=== PATIENT | female | born 1960 | race Caucasian/White ===

== ENCOUNTER → 2017-04-28 | Outpatient (CLI) | payer OTHER ==
--- NOTE | 2017-04-28 11:17 | MM ---
Reason for exam: clinical finding. Last mammogram was performed 1 year and 10 months ago. History: Patient is postmenopausal. Family history of premenopausal breast cancer in sister at age 41, premenopausal breast cancer in sister at age 50, and breast cancer in mother at age 60. Took progesterone for 1 year 6 months beginning at age 45. Taking other hormone beginning at age 54. Physical Findings: Nurse did not find any significant physical abnormalities on exam. MG 3D Diag Mammo W/Cad TONNY Bilateral CC and MLO view(s) were taken. Prior study comparison: July 05, 2015, bilateral MG 3d screening mammo w/cad. February 03, 2013, bilateral digital screening mammo w/CAD. The breast tissue is extremely dense which could obscure a lesion on mammography. No significant new findings when compared with previous films. These results were verbally communicated with the patient and result sheet given to the patient on 04/28/17. ASSESSMENT: Benign, BI-RAD 2 RECOMMENDATION: Surgical consultation and ultrasound core biopsy of the right breast. Called Dr. Agrawal with mammographic findings and has scheduled an appointment for the patient for 05/13/17 at 10:[address] Lowe. PRELIMINARY REPORT CALLED AND FAXED TO DR. LOWE ON 04/29/17.
--- NOTE | 2017-04-28 11:19 | USB ---
Reason for exam: clinical finding. History: Patient is postmenopausal. Family history of premenopausal breast cancer in sister at age 41, premenopausal breast cancer in sister at age 50, and breast cancer in mother at age 60. Took progesterone for 1 year 6 months beginning at age 45. Taking other hormone beginning at age 54. US Breast RT Right breast ultrasound includes all four quadrants, the retroareolar region and axilla. Finding demonstrates a 0.8 x 0.4 x 0.6cm cystic lesion at 1 o'clock and a 0.5 x 0.4 x 0.6cm mixed lesion at 8 o'clock, suspicious, biopsy recommended. These results were verbally communicated with the patient and result sheet given to the patient on 04/28/17. ASSESSMENT: Suspicious, BI-RAD 4 RECOMMENDATION: Ultrasound core biopsy of the right breast. Called Dr. Agrawal with mammographic findings and has scheduled an appointment for the patient for 05/13/17 at 10:[address] Lowe. PRELIMINARY REPORT CALLED AND FAXED TO DR. LOWE ON 04/29/17.
== END | disposition home or self-care (01) ==
LOC: RADMAMWWP 07:34
PROVIDERS: ATTEND Family Medicine
DX: N64.4 Mastodynia (principal)
CPT/HCPCS: 76641; G0204; G0279

== ENCOUNTER → 2017-06-23 | Day surgery (SDC) | payer OTHER ==
[2017-06-23 12:04] VITALS: RESP 16; BMI 24.1
[2017-06-23 14:03] VITALS: BP 157/88; PULSE 79; TEMP 97.7
--- NOTE | 2017-06-23 14:28 | USB ---
EXAMINATION TYPE: US biopsy breast VAD RT, Postbiopsy MG diagnostic mammo RT wo CAD DATE OF EXAM: 06/23/2017 CLINICAL HISTORY: 57-year-old female R92.8 Previous Abnormal Mammogram. TECHNIQUE: Ultrasound guided core biopsy of the right breast. COMPARISON: 04/28/2017 FINDINGS: The procedure of ultrasound guided core biopsy was explained to the patient. Benefits, alternatives, and risks were discussed. An informed consent was then obtained. The patient was placed in supine positioning for imaging and for the procedure. The overlying skin was prepped and draped in usual sterile fashion. Lidocaine buffered with bicarbonate was used as anesthetic into the skin and subcutaneous tissue up to area of concern in the 8:00 position right breast. Under ultrasound guidance, a 13-gauge vacuum-assisted mammotome Elite biopsy gun device was used to obtain 4 core samples. Following this, a coil clip was left in lesion. The patient tolerated the procedure well without any immediate complication. The patient was kept in the radiology department for short stay after the procedure and then discharged home in stable condition. Post procedure mammogram shows the microclip centrally at the o'clock position there is some associated postprocedure hematoma localized to the biopsy site. IMPRESSION: Successful, uncomplicated ultrasound guided core biopsy of area of concern in the 8:00 right breast, full pathology results to follow. Pathology Results: Benign BREAST, RIGHT, EIGHT O'CLOCK, CORE BIOPSY: FIBROCYSTIC CHANGES INCLUDING CYSTS , FIBROSIS AND ADENOSIS. Recommendation Follow up ultrasound of the right breast in 6 months. HERNANDEZ
== END ==
LOC: RADUSWWP 11:42
PROVIDERS: ATTEND Surgery
DX: N60.31 Fibrosclerosis of right breast (principal); R92.8 Other abnormal and inconclusive findings on diagnostic imaging of breast; N60.21 Fibroadenosis of right breast; Z88.5 Allergy status to narcotic agent
CPT/HCPCS: 88305; 77065; 19083; A4648; J2001

== ENCOUNTER → 2020-09-10 | Outpatient (CLI) | payer MEDICAID ==
[2020-09-10 23:39] LABS: HCT 40.5 % (37.2-46.3); HGB 12.9 g/dL (12.0-15.0); MCH 27.6 pg (27.0-32.0); MCHC 31.9 g/dL (32.0-37.0); MCV 86.7 fL (80.0-97.0); Mean Platelet Volume 11.1 fL (9.5-12.2); Platelet Count 264 X 10*3/uL (140-440); RBC 4.67 X 10*6/uL (4.10-5.20); RDW 12.1 % (11.5-14.5); WBC 6.38 X 10*3/uL (4.50-10.00)
[2020-09-11 03:41] LABS: ALT 35 U/L (8-44); AST 22 U/L (13-35); Albumin/Globulin Ratio 1.91 (1.60-3.17); Alkaline Phosphatase 125 U/L (41-126); Bilirubin, Conjugated <0.20 mg/dL (0.20-0.40); Globulin 2.3 g/dL (1.6-3.3); Total Bilirubin 0.4 mg/dL (0.2-1.2); Total Protein 6.7 g/dL (6.2-8.2)
== END | disposition home or self-care (01) ==
LOC: LABWHC1 08:33
PROVIDERS: ATTEND Internal Medicine
DX: E05.90 Thyrotoxicosis, unspecified without thyrotoxic crisis or storm (principal)
CPT/HCPCS: 36415; 80076; 84439; 84443; 84481; 85027

== ENCOUNTER → 2020-11-12 | Outpatient (CLI) | payer MEDICAID ==
[2020-11-12 23:29] LABS: HCT 42.3 % (37.2-46.3); HGB 13.6 g/dL (12.0-15.0); MCH 26.8 pg (27.0-32.0); MCHC 32.2 g/dL (32.0-37.0); MCV 83.4 fL (80.0-97.0); Mean Platelet Volume 11.1 fL (9.5-12.2); Platelet Count 283 X 10*3/uL (140-440); RBC 5.07 X 10*6/uL (4.10-5.20); RDW 12.3 % (11.5-14.5); WBC 5.93 X 10*3/uL (4.50-10.00)
[2020-11-13 13:11] LABS: ALT 23 U/L (8-44); AST 18 U/L (13-35)
== END | disposition home or self-care (01) ==
LOC: LABWHC1 14:46
PROVIDERS: ATTEND Internal Medicine
DX: E05.90 Thyrotoxicosis, unspecified without thyrotoxic crisis or storm (principal)
CPT/HCPCS: 36415; 84439; 84443; 84450; 84460; 84481; 85027

== ENCOUNTER → 2021-01-17 | Outpatient (CLI) | payer MEDICAID ==
[2021-01-17 20:41] LABS: T4, Free (Free Thyroxine) 0.8 ng/dL (0.80-1.80)
== END | disposition home or self-care (01) ==
LOC: LABWHC1 08:32
PROVIDERS: ATTEND Internal Medicine Endocrinology, Diabetes & Metabolism
DX: E05.00 Thyrotoxicosis with diffuse goiter without thyrotoxic crisis or storm (principal)
CPT/HCPCS: 36415; 84439; 84443; 84480

== ENCOUNTER → 2021-04-17 | Outpatient (CLI) | payer MEDICAID ==
[2021-04-17 17:32] LABS: T4, Free (Free Thyroxine) 1.12 ng/dL (0.800-1.800)
== END | disposition home or self-care (01) ==
LOC: LABWHC1 08:02
PROVIDERS: ATTEND Internal Medicine Endocrinology, Diabetes & Metabolism
DX: E05.00 Thyrotoxicosis with diffuse goiter without thyrotoxic crisis or storm (principal)
CPT/HCPCS: 36415; 84439; 84443; 84480

== ENCOUNTER → 2021-07-18 | Outpatient (CLI) | payer MEDICAID ==
[2021-07-18 17:31] LABS: T4, Free (Free Thyroxine) 1.05 ng/dL (0.800-1.800)
== END | disposition home or self-care (01) ==
LOC: LABWHC1 08:46
PROVIDERS: ATTEND Internal Medicine Endocrinology, Diabetes & Metabolism
DX: E05.00 Thyrotoxicosis with diffuse goiter without thyrotoxic crisis or storm (principal)
CPT/HCPCS: 36415; 84439; 84443; 84480

== ENCOUNTER → 2021-07-21 | Outpatient (CLI) | payer MEDICAID ==
[2021-07-21 08:40] VITALS: BP 168/79; PULSE 86; RESP 17; TEMP 98.2
--- NOTE | 2021-07-21 10:31 | P.HPOB ---
History of Present Illness H&P Date: 07/21/21 Chief Complaint: The patient is here for her routine gynecologic exam. This is a 61-year-old with an LMP of 2008. She is here to establish with this office. It has been about 6 years since her last pelvic exam. She states she has been experiencing some dull achy discomfort with occasional twinges for the past 1-1/2-2 years. It is a constant ache and she rates the pain at a 2 out of 10. She notices it in the right lower quadrant and right pelvic area. There does not seem to be any specific activity that seems to make it worse, but she occasionally notices an increased with bowel movements. She also wonders if it is related to constipation which she does tend to have. She is wondering if it is related to her ovaries or pelvic adhesions from past surgeries. She denies any postmenopausal bleeding. Review of Systems She states her weight has been fluctuating by about 10-15 pounds after she was diagnosed with a thyroid problem. She states her normal adult weight has been about 155 pounds. She denies respiratory problems. Cardiac: Occasional palpitations she thinks this is related to her thyroid problem. GI: Occasional constipation. Past Medical History Past Medical History: Hypertension, Mitral Valve Prolapse (MVP), Thyroid Disorder Additional Past Medical History / Comment(s): Graves' disease. PAST ASBESTOS REMOVER HISTORY: She has no history of STDs. She did have cryotherapy for cervical dysplasia in 1987. History of Any Multi-Drug Resistant Organisms: None Reported Past Surgical History: Breast Surgery, Section, Uterine Ablation Additional Past Surgical History / Comment(s): Peritoneal endometriosis cyst removed 1988. x1. Right breast biopsy(benign), colonoscopy 1991. Past Anesthesia/Blood Transfusion Reactions: Motion Sickness Past Psychological History: Anxiety, Depression Smoking Status: Former smoker, Vaper Past Alcohol Use History: Rare (0-1 month.) Additional Past Alcohol Use History / Comment(s): Current pack a day smoker Past Drug Use History: None Reported Additional History: She is a and is not seeing anybody at this time. 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 - Past Family History Sister(s) Family Medical History: Cancer Additional Family Medical History / Comment(s): Breast cancer. Mother Family Medical History: Cancer, Thyroid Disorder Additional Family Medical History / Comment(s): Graves' disease. CDIS of the breast and uterine cancer. Father Family Medical History: Myocardial Infarction (GA) Additional Family Medical History / Comment(s): after GA at age 36. Medications and Allergies Home Medications Medication Instructions Recorded Confirmed Type Cholecalciferol [Vitamin D3] 15,000 unit PO DAILY 06/16/17 07/21/21 History Magnesium Oxide [Saleh] 500 mg PO DAILY 06/16/17 07/21/21 History Selenium 200 mcg PO DAILY 06/16/17 07/21/21 History flaxseed oiL [Cary-3 Flaxseed Oil] 3,000 mg PO BID 06/16/17 06/23/17 History L.acidoph,Paracasei, B.lactis 1 capsule PO DAILY 07/21/21 07/21/21 History [Probiotic] Milk Thistle 150 mg PO DAILY 07/21/21 07/21/21 History Vitamin A [Vitamin A (8,000 Units 2,400 mcg PO DAILY 07/21/21 07/21/21 History = 2,400 MCG)] Vitamin K2 100 mcg PO DAILY 07/21/21 07/21/21 History Zinc 50 mg PO DAILY 07/21/21 07/21/21 History methIMAzole 12 mg PO DAILY 07/21/21 07/21/21 History Allergies Allergy/AdvReac Type Severity Reaction Status Date / Time latex Allergy Itching Verified 07/21/21 08:29 venom-honey bee Allergy Swelling Verified 07/21/21 08:29 codeine AdvReac Nausea & Verified 07/21/21 08:29 Vomiting Exam Vital Signs Temp Pulse Resp BP Pulse Ox 07/21/21 08:36 98.2 F 86 17 168/79 96 Intake and Output 07/20/21 07/21/21 07/21/21 22:59 06:59 14:59 Other: Weight 75.296 kg Height 5 feet 6 inches, weight 166 pounds, BMI 26.8. This is a well-developed well-nourished white female who is alert and oriented times 3 in no acute distress. HEENT: Within normal limits. NECK: Supple without mass or thyromegaly. CHEST AND LUNGS: Clear to auscultation. HEART: Regular rate and rhythm. BREASTS: Are without mass or discharge. AXILLARY EXAM: Negative for adenopathy. BACK: Negative for CVA tenderness. ABDOMEN: Soft, nontender, without palpable masses. PELVIC EXAM: Normal external genitalia with mild atrophy. Cervix and vagina appear normal with mild atrophy. The cervix is slightly stenotic secondary to atrophy and previous cryotherapy of the cervix. There is no unusual discharge. There is no evidence of prolapse. The uterus is midposition, nongravid size and nontender. There are no palpable adnexal masses or tenderness. RECTAL EXAM: Rectovaginal exam is negative for mass or tenderness and is negative for occult blood. EXTREMITIES: Nontender. IMPRESSION: 1. 61-year-old menopausal female with chronic right lower quadrant and right pelvic ache with no significant physical findings at this time. Differential diagnosis will include pelvic adhesions, GI discomfort, hernia or or ovarian neoplasm. 2. Elevated blood pressure with history of chronic hypertension. The patient states she is no longer taking her antihypertension medication PLAN: 1. Pap smear CLOtest was performed. 2. Self breast awareness was discussed with the patient. We have also discussed symptoms associated with inflammatory breast cancer. 3. I have recommended screening mammogram since it has been a few years since her last one. The order slip was given to the patient for this. 4. We have discussed her elevated blood pressure. I recommended that she follow up with her primary care physician regarding blood pressure medications. I have stressed the importance of controlling elevated blood pressure and we've discussed possible complications which can include increased risk for stroke, if not controlled. I have also recommended regular home blood pressure testing since she does have a blood pressure cuff. 5. Pelvic ultrasound was recommended and the order slip was given to patient for this. 6.Osteoporosis prevention was discussed. I have stressed the importance of adequate calcium, vitamin D and regular exercise. Recommended amounts of calcium and vitamin D were also discussed. I have recommended bone density testing and the order slip was given to the patient for this. 7. I have recommended screening colonoscopy since it has been more than 10 years since her last one. She was advised to discuss this with her PCP to have them arrange for this. 8. She has not received a Covid vaccination. She states she did have Covid. She understands that the CDC recommends Covid vaccination, which can increase protection against Covid. 9. She was advised to return in one year for her annual well woman exam.
== END ==
LOC: WWCWWP 08:19
PROVIDERS: ATTEND Obstetrics & Gynecology
DX: Z01.419 Encounter for gynecological examination (general) (routine) without abnormal findings (principal); R10.30 Lower abdominal pain, unspecified; R10.2 Pelvic and perineal pain; G89.29 Other chronic pain; I10 Essential (primary) hypertension; F41.9 Anxiety disorder, unspecified; F32.A Depression, unspecified; F17.210 Nicotine dependence, cigarettes, uncomplicated; Z91.040 Latex allergy status; Z91.030 Bee allergy status; Z88.5 Allergy status to narcotic agent

== ENCOUNTER → 2021-10-21 | Outpatient (CLI) | payer MEDICAID ==
[2021-10-21 11:08] LABS: T4, Free (Free Thyroxine) 1.1 ng/dL (0.800-1.800)
== END | disposition home or self-care (01) ==
LOC: LABWHC1 07:14
PROVIDERS: ATTEND Internal Medicine Endocrinology, Diabetes & Metabolism
DX: E05.00 Thyrotoxicosis with diffuse goiter without thyrotoxic crisis or storm (principal)
CPT/HCPCS: 36415; 84439; 84443; 84480

== ENCOUNTER → 2021-11-21 | Outpatient (CLI) | payer MEDICAID ==
[2021-11-21 12:32] LABS: Basophils # (A) 0.06 X 10*3/uL (0.00-0.10); Basophils % (A) 0.9 %; Eosinophils # (A) 0.08 X 10*3/uL (0.04-0.35); Eosinophils % (A) 1.2 %; HCT 42.9 % (37.2-46.3); HGB 13.7 g/dL (12.0-15.0); Immature Grans, Automated 0.3 %; Lymphocytes # (A) 1.86 X 10*3/uL (0.90-5.00); Lymphocytes % (A) 28.9 %; MCH 27.8 pg (27.0-32.0); MCHC 31.9 g/dL (32.0-37.0); Mean Platelet Volume 10.8 fL (9.5-12.2); Monocytes % (A) 7.8 %; NRBC Per 100 WBC 0 /100 WBCS (0.0-0.0); Neutrophils # (A) 3.92 X 10*3/uL (1.80-7.70); Neutrophils % (A) 60.9 %; Platelet Count 271 X 10*3/uL (140-440); RBC 4.93 X 10*6/uL (4.10-5.20); RDW 12.9 % (11.5-14.5); WBC 6.44 X 10*3/uL (4.50-10.00)
[2021-11-21 12:55] LABS: ALT 28 U/L (8-44); AST 21 U/L (13-35); Albumin 4.8 g/dL (3.8-4.9); Albumin/Globulin Ratio 1.82 (1.60-3.17); Alkaline Phosphatase 108 U/L (41-126); Blood Urea Nitrogen 15.6 mg/dL (9.0-27.0); Calcium 9.8 mg/dL (8.7-10.3); Chloride 106 mmol/L (96-109); Chol/HDL Ratio 4.09 Ratio; Globulin 2.6 g/dL (1.6-3.3); Glucose 98 mg/dL (70-110); LDL Cholesterol,Calculated 132.5 mg/dL (0.0-131.0); Non-African American GFR(CKD) 93.2 (60.0-200.0); Potassium 4.3 mmol/L (3.5-5.5); Sodium 142 mmol/L (135-145); Total Protein 7.4 g/dL (6.2-8.2); VLDL Calculation 17.86 mg/dL (5.00-40.00)
== END | disposition home or self-care (01) ==
LOC: LABWHC1 07:52
PROVIDERS: ATTEND Internal Medicine
DX: E78.2 Mixed hyperlipidemia (principal); E55.9 Vitamin D deficiency, unspecified; E05.90 Thyrotoxicosis, unspecified without thyrotoxic crisis or storm
CPT/HCPCS: 36415; 80053; 80061; 82306; 83036; 85025

== ENCOUNTER → 2022-01-09 | Outpatient (CLI) | payer MEDICAID ==
[2022-01-09 11:46] LABS: T4, Free (Free Thyroxine) 1.36 ng/dL (0.800-1.800)
== END | disposition home or self-care (01) ==
LOC: LABWHC1 08:42
PROVIDERS: ATTEND Internal Medicine Endocrinology, Diabetes & Metabolism
DX: E05.00 Thyrotoxicosis with diffuse goiter without thyrotoxic crisis or storm (principal)
CPT/HCPCS: 36415; 84439; 84443; 84480

== ENCOUNTER → 2022-01-14 | Outpatient (CLI) | payer MEDICAID ==
--- NOTE | 2022-01-14 12:52 | US ---
EXAMINATION TYPE: US carotid duplex BILAT DATE OF EXAM: 01/14/2022 COMPARISON: NONE CLINICAL HISTORY: [id number] CAROTID STENOSIS, BILATERAL. TECHNIQUE: Carotid duplex ultrasound examination. Indirect Doppler criteria was utilized. FINDINGS: EXAM MEASUREMENTS: RIGHT: Peak Systolic Velocity (PSV) cm/sec ----- Right CCA: 84.3 ----- Right ICA: 88.3 ----- Right ECA: 130 ICA/CCA ratio: 1.05 RIGHT: End Diastole cm/sec ----- Right CCA: 23.8 ----- Right ICA: 25.1 ----- Right ECA: 24.5 LEFT: Peak Systolic Velocity (PSV) cm/sec ----- Left CCA: 80.2 ----- Left ICA: 92.4 ----- Left ECA: 95.8 ICA/CCA ratio: 1.15 LEFT: End Diastole cm/sec ----- Left CCA: 23.1 ----- Left ICA: 35.3 ----- Left ECA: 19.0 VERTEBRALS (direction of flow): Right Vertebral: Antegrade Left Vertebral: Antegrade Rhythm: Normal CLINICAL TRIAL HEAD NOTES: Minimal plaque bilateral bifurcations. no evidence of increased velocities. IMPRESSION: 1. Atherosclerotic plaque bilaterally with no significant hemodynamic stenosis. Criteria for Assigning % of Stenosis / Diameter reduction (Estimation based on the indirect measurements of the internal carotid artery velocities (ICA PSV). 1. Normal (no stenosis)=ICA PSV < 125 cm/s: ratio < 2.0: ICA EDV<40 cm/s. 2. Less than 50% stenosis=ICA PSV < 125 cm/s: ratio < 2.0: ICA EDV<40 cm/s. 3. 50 to 69% stenosis=ICA PSV of 125 to 230 cm/s: ration 2.0 ? 4.0: ICA EDV 40-100 cm/s. 4. Greater than 70% stenosis to near occlusion= ICA PSV > 230 cm/s: ratio > 4.0: ICA EDV > 100 cm/s. 5. Near occlusion= ICA PSV velocities may be low or undetectable: variable ratio and ICA EDV. 6. Total occlusion=unable to detect flow.
--- NOTE | 2022-01-14 17:39 | CA ---
Transthoracic Echo Report Name: Rachel Casillas Age: 61 Gender: F : 1960 Exam Date: 01/14/2022 11:22 Exam Location: [facility] Ht (in): 66 Wt (lb): 170 Ordering Physician: Ayaka Nieto MD Attending/Referring Phys: Fingerprint Classifier Kari Cisneros RDCS Procedure CPT: Indications: I34.1 NONRHEUMATIC MITRAL (VALVE) PROLAPSE, I65.23 Cardiac Hx: Technical Quality: Fair Contrast 1: Total Dose (mL): Contrast 2: Total Dose (mL): MEASUREMENTS (Male / Female) Normal Values 2D ECHO LV Diastolic Diameter PLAX 2.9 cm 4.2 - 5.9 / 3.9 - 5.3 cm LV Systolic Diameter PLAX 1.7 cm IVS Diastolic Thickness 1.4 cm 0.6 - 1.0 / 0.6 - 0.9 cm LVPW Diastolic Thickness 1.5 cm 0.6 - 1.0 / 0.6 - 0.9 cm LV Relative Wall Thickness 1.0 LA Volume 27.0 cm??? 18 - 58 / 22 - 52 cm??? M-MODE Aortic Root Diameter MM 2.5 cm LA Systolic Diameter MM 2.3 cm LA Ao Ratio MM 0.9 AV Cusp Separation MM 1.3 cm DOPPLER AV Peak Velocity 143.2 cm/s AV Peak Gradient 8.2 mmHg LVOT Peak Velocity 122.9 cm/s LVOT Peak Gradient 6.0 mmHg MV Area PHT 1.7 cm??? Mitral E Point Velocity 58.4 cm/s Mitral A Point Velocity 88.5 cm/s Mitral E to A Ratio 0.7 MV Deceleration Time 447.2 ms MV E' Velocity 6.4 cm/s Mitral E to MV E' Ratio 9.1 TR Peak Velocity 173.6 cm/s TR Peak Gradient 12.1 mmHg Right Ventricular Systolic Press 17.1 mmHg FINDINGS Left Ventricle Moderately increased left ventricular wall thickness. Normal left ventricular systolic function with no obvious regional wall motion abnormalities. Left ventricular ejection fraction is estimated at 55-60 %. Right Ventricle Normal right ventricular size and function. Right ventricular systolic pressure within normal limits. Right Atrium Normal right atrial size. Left Atrium Normal left atrial size. Mitral Valve Structurally normal mitral valve. No mitral stenosis, regurgitation or prolapse. Aortic Valve Trileaflet aortic valve. No aortic valve stenosis or regurgitation. Tricuspid Valve Structurally normal tricuspid valve. Mild tricuspid regurgitation. Pulmonic Valve Structurally normal pulmonic valve. Trace pulmonic regurgitation. Pericardium No pericardial effusion. Aorta Normal size aortic root and proximal ascending aorta. CONCLUSIONS LVH with preserved LV systolic function Previewed by: Dr. Agustín Cordero MD (Electronically Signed) Final Date: 14 January 2022 17:38
== END | disposition home or self-care (01) ==
LOC: RADECHMAIN 11:18
PROVIDERS: ATTEND Internal Medicine
DX: I65.23 Occlusion and stenosis of bilateral carotid arteries (principal); I36.1 Nonrheumatic tricuspid (valve) insufficiency
CPT/HCPCS: 93306; 93880

== ENCOUNTER → 2022-04-10 | Outpatient (CLI) | payer MEDICAID ==
[2022-04-10 16:29] LABS: T4, Free (Free Thyroxine) 1.01 ng/dL (0.800-1.800)
== END | disposition home or self-care (01) ==
LOC: LABWHC1 10:22
PROVIDERS: ATTEND Internal Medicine Endocrinology, Diabetes & Metabolism
DX: E05.90 Thyrotoxicosis, unspecified without thyrotoxic crisis or storm (principal)
CPT/HCPCS: 36415; 84439; 84443; 84480

== ENCOUNTER → 2022-06-01 | Outpatient (CLI) | payer MEDICAID ==
[2022-06-01 20:51] LABS: T4, Free (Free Thyroxine) 1.03 ng/dL (0.800-1.800)
== END | disposition home or self-care (01) ==
LOC: LABWHC1 11:42
PROVIDERS: ATTEND Internal Medicine Endocrinology, Diabetes & Metabolism
DX: E05.90 Thyrotoxicosis, unspecified without thyrotoxic crisis or storm (principal)
CPT/HCPCS: 36415; 84439; 84443; 84480

== ENCOUNTER → 2022-07-27 | Outpatient (CLI) | payer MEDICAID ==
[2022-07-27 22:56] LABS: T4, Free (Free Thyroxine) 1.16 ng/dL (0.800-1.800)
== END | disposition home or self-care (01) ==
LOC: LABWHC1 12:40
PROVIDERS: ATTEND Internal Medicine Endocrinology, Diabetes & Metabolism
DX: E05.90 Thyrotoxicosis, unspecified without thyrotoxic crisis or storm (principal)
CPT/HCPCS: 36415; 84439; 84443; 84480

== ENCOUNTER → 2022-09-08 | Outpatient (CLI) | payer MEDICAID ==
[2022-09-08 16:05] LABS: T4, Free (Free Thyroxine) 0.93 ng/dL (0.800-1.800)
== END | disposition home or self-care (01) ==
LOC: LABWHC1 09:38
PROVIDERS: ATTEND Internal Medicine Endocrinology, Diabetes & Metabolism
DX: E05.90 Thyrotoxicosis, unspecified without thyrotoxic crisis or storm (principal)
CPT/HCPCS: 36415; 84439; 84443; 84479; 84480

== ENCOUNTER → 2022-12-13 | Outpatient (CLI) | payer MEDICAID ==
[2022-12-13 20:11] LABS: T4, Free (Free Thyroxine) 1.27 ng/dL (0.80-1.80)
[2022-12-13 20:20] LABS: Thyroid Peroxidase Antibodies 96.9 U/mL (0.0-33.0)
== END | disposition home or self-care (01) ==
LOC: LABWHC1 11:21
PROVIDERS: ATTEND Internal Medicine Endocrinology, Diabetes & Metabolism
DX: E05.90 Thyrotoxicosis, unspecified without thyrotoxic crisis or storm (principal)
CPT/HCPCS: 36415; 84439; 84443; 84480; 86376